=== PATIENT | male | born 1950 | race Caucasian/White ===

== ENCOUNTER 2019-10-23 05:27 | Day surgery (SDC) | payer MEDICARE ==
[2019-10-17 11:21] LABS: CLARITY,URINE CLEAR (Clear); COLOR,URINE YELLOW (Yellow); GLUCOSE, URINE NEGATIVE (Neg); KETONES,URINE NEGATIVE (Neg); LEUKOCYTE ESTERASE ,URINE NEGATIVE (Neg); NITRITES, URINE NEGATIVE (Neg); OCCULT BLOOD,URINE NEGATIVE (Neg); PROTEIN,URINE NEGATIVE (Neg); UROBILINOGEN,URINE 0.2 E.U/dL (0.2-1.0)
[2019-10-17 11:22] LABS: UA COLLECTION TYPE VOIDED
[2019-10-17 11:26] LABS: BASOPHILS % (AUTO) 0.2 % (0-1); LYMPHOCYTES # (AUTO) 0.9 X10'3 (1.1-4.8); LYMPHOCYTES % (AUTO) 20.6 % (21-51); MEAN CORPUSCULAR HEMOGLOBIN 31.3 PG (27.0-31.0); MEAN CORPUSCULAR HGB CONC 33.1 g/dL (33.0-36.5); MEAN CORPUSCULAR VOLUME 94.7 FL (78-98); MEAN PLATELET VOLUME 8.8 FL (7.4-10.4); MONOCYTES # (AUTO) 0.5 X10'3 (0-0.9); MONOCYTES % (AUTO) 12.8 % (2-12); NEUTROPHILS # (AUTO) 2.8 X10'3 (1.8-7.7); NEUTROPHILS % (AUTO) 65.4 % (42-75); PRE OP HEMATOCRIT 42.9 % (42.0-52.0); PRE OP HEMOGLOBIN 14.2 g/dL (14.0-17.9); PRE OP PLATELET COUNT 211 X10'3 (140-440); RED BLOOD COUNT 4.53 X10'6 (4.70-6.10); RED CELL DISTRIBUTION WIDTH 14.6 % (11.5-14.5)
[2019-10-17 11:35] LABS: ALBUMIN 3.7 G/DL (3.4-5.0); ALBUMIN/GLOBULIN RATIO 1.1 (1.1-1.5); ALKALINE PHOSPHATASE 103 IU/L (46-116); BLOOD UREA NITROGEN 19 MG/DL (7-18); BUN/CREATININE RATIO 22.9 (5.4-32.0); CALCIUM 9.5 MG/DL (8.5-10.1); CHLORIDE 105 MMOL/L (99-107); CREATININE 0.83 MG/DL (0.60-1.10); PRE OP ALT 16 U/L (30-65); PRE OP ANION GAP 8 (8-16); PRE OP AST 21 U/L (10-37); PRE OP BILIRUB, TOTAL 0.6 MG/DL (0.0-1.0); PRE OP GLUCOSE 91 MG/DL (70-104); PRE OP POTASSIUM 4.4 MMOL/L (3.4-5.1); PRE OP SODIUM 141 MMOL/L (135-145); TOTAL CARBON DIOXIDE 28.2 MMOL/L (24-32); TOTAL PROTEIN 7.1 G/DL (6.4-8.2); eGFR > 90 ML/MIN
[2019-10-23] VITALS (24 sets, daily range): BP systolic 96–163; BP diastolic 56–109
[~2019-10-23] VITALS: Ht 182.9 cm; Wt 106.0 kg
[~2019-10-23 05:27] MED LIST: ALLO300T2 PO; ringers solution, lacted 1,000 ML IV SCH
[2019-10-23] MEDS ORDERED: famotidine 20mg tablet PO ONE (05:30)
[2019-10-23] MEDS ORDERED: ceFAZolin 2gm in dextrose, iso 50 ML IV ONE (05:30)
[2019-10-23] MEDS ORDERED: LIDOcaine 1% (10mg/ml) 2ml vial ONE (06:01)
[2019-10-23] MEDS ORDERED: BUPIVAcaine/PF 2.5 mg/ml (0.25%) 30ml vial ONE (06:50)
[2019-10-23] MEDS ORDERED: ringers solution, lacted 1,000 ML IV SCH (07:14)
[2019-10-23] MEDS ORDERED: hydrALAZINE 20mg/ml inj. IV PRN (07:15)
[2019-10-23] MEDS ORDERED: morphine 2 MG/ML inj. syringe IV PRN (07:15)
[2019-10-23] MEDS ORDERED: ondansetron/PF 4mg/2ml inj IV PRN (07:15)
[2019-10-23] MEDS ORDERED: fentaNYL/PF 50MCG/1 ML 2ML syringe IV PRN ×2 (07:15)
[2019-10-23] MEDS ORDERED: morphine 4 MG/ML inj SYRINge IV PRN (07:15)
[2019-10-23] MEDS ORDERED: labetalol 20mg/4ml (5mg/ml) syringe IV PRN (07:15)
[2019-10-23] MEDS ORDERED: midazolam 2 mg/2 ml injection ONE (07:25)
[2019-10-23] MEDS ORDERED: fentaNYL/PF 50MCG/1 ML 2ML syringe ONE ×2 (07:25→08:31)
[2019-10-23] MEDS ORDERED: rocuronium 10mg/ml inj IV ONE (07:26)
[2019-10-23] MEDS ORDERED: propofol inj 20 ML IV ONE (07:26)
[2019-10-23] MEDS ORDERED: LIDOcaine 2% (20mg/ml) 5ml vial ONE (07:26)
[2019-10-23] MEDS ORDERED: dexamethasone sod phosphate 4mg/ml inj. ONE (07:26)
[2019-10-23] MEDS ORDERED: ondansetron/PF 4mg/2ml inj ONE (07:26)
[2019-10-23] MEDS ORDERED: ePHEDrine 50MG/ML INJ. ONE (08:03)
[2019-10-23] MEDS ORDERED: glycopyrrolate 0.2mg/ml inj ONE (08:13)
[2019-10-23] MEDS ORDERED: neostigmine methylsulfate 1 MG/ML 10ml vial ONE (08:13)
[2019-10-23] MEDS ORDERED: metoprolol tartrate 1mg/ml inj IV ONE (08:49)
--- NOTE | 2019-10-23 08:56 | NUR ---
RECEIVED FROM OR VIA [facility] ACCOMPANIED BY ANESTHESIOLOGIST DR MALONE, REPORT GIVEN. PT DROWSY BUT AWAKENS EASILY WITH A STATED PAIN LEVEL OF 2 AT THIS TIME. 20 GAUGE PIV R WRIST PATENT AND RUNNING LR AT 100 ML/HR. LG BANDAID DRESSING X2 TO ABD CDI. ABD SOFT, SKIN PINK AND WARM, BISHOP, BRISK CAP REFILL, RESTING COMFORTABLY AT THIS TIME.
--- NOTE | 2019-10-23 11:36 | NUR ---
PT TOLERATING FLUIDS WELL YET STILL UNABLE TO VOID. TRANSPORTED VIA GURNEY TO PAS UNIT ACCOMPANIED BY PETROS JACKSON FOR DISCHARGE FROM THAT UNIT.
--- NOTE | 2019-10-23 12:05 | NUR ---
VOIDED 550 CC YELLOW CLEAR URINE. CALLED RIDE. WILL BE IN 45 MINUTES.
[2019-10-23] MEDS ORDERED: HYDROcodone/acetaminophen 10/325mg tab PO ONE (12:45)
--- NOTE | 2019-10-23 13:00 | NUR ---
PT MEETS DISCHARGE CRITERIA. IV REMOVED. PT VERBALIZES UNDERSTANDING OF DISCHARGE INSTRUCTIONS. GAVE NORCO PRIOR TO DISCHARGE FOR PAIN MANAGEMENT.
== END 2019-10-23 13:38 | disposition home or self-care (01) ==
LOC: PAS 05:27
PROVIDERS: ATTEND Surgery
DX: K40.90 Unilateral inguinal hernia, without obstruction or gangrene, not specified as recurrent (principal); M10.9 Gout, unspecified; Z20.828 Contact with and (suspected) exposure to other viral communicable diseases; Z87.891 Personal history of nicotine dependence; Z79.899 Other long term (current) drug therapy; Z98.890 Other specified postprocedural states; Z88.8 Allergy status to other drugs, medicaments and biological substances
CPT/HCPCS: 36415; 49650; 80053; 81003; 82948; 85025; 87635; C1781; J1100; J2001; J2250; J2270; J2405; J2704; J2710; J3010; J3490; A4215; A4314; A4618; A6258; J7120